=== PATIENT | female | born 1990 | race Caucasian/White ===

== ENCOUNTER 2017-02-09 05:05 | Emergency (ER) | payer BC, OTHER ==
[2017-02-09] MEDS ORDERED: NS 0.9% 1000 ML* 1,000 ML IV ONE ×2 (05:14→05:52)
[2017-02-09] MEDS ORDERED: Ondansetron INJ* 2 MG/ML VIAL IV ONE (05:52)
[2017-02-09] MEDS ORDERED: Morphine INJ* 4 MG/ML 1 ML CARPUJECT IV ONE (05:52)
--- NOTE | 2017-02-09 05:55 | ED ---
Alfredito Bey Angela, scribed for Rachel Miles MD on 02/09/17 at 0549 . Abdominal Pain/Female - HPI Summary HPI Summary: This pt is a 26 y/o female accompanied by her boyfriend presenting to [facility] c/o RLQ abd pain since yesterday morning. Pt reports that initially her pain was rated 3 out of 10 in severity. She states that her pain now is rated 6 out of 10 that began at 0330 today. pt denies dysuria, back pain, nausea, diarrhea, vomiting. Her pain is aggravated by deep breathing and alleviated by laying down. PMHx: ovarian cyst - History of Current Complaint Chief Complaint: EDAbdPain Stated Complaint: LOWER RT SIDE ABD PAIN Time Seen by Provider: 02/09/17 05:42 Hx Obtained From: Patient Hx Last Menstrual Period: hx pcos -very irreg Onset/Duration: Lasting Days - 1 Timing: Days - 1 Pain Intensity: 6 Pain Scale Used: 0-10 Numeric Location: Discrete At: RLQ Radiates: No Aggravating Factor(s): Deep Breaths Alleviating Factor(s): Position - laying down Associated Signs and Symptoms: Negative: Fever, Back Pain, Nausea, Vomiting, Diarrhea Allergies/Adverse Reactions: Allergies Allergy/AdvReac Type Severity Reaction Status Date / Time Amoxicillin Allergy Intermediate Rash Verified 08/18/14 13:21 PMH/Surg Hx/FS Hx/Imm Hx Endocrine/Hematology History: Denies: Hx Diabetes, Hx Thyroid Disease Cardiovascular History: Reports: Hx Hypertension Respiratory History: Denies: Hx Asthma, Hx Chronic Obstructive Pulmonary Disease (COPD) GI History: Denies: Hx Ulcer Infectious Disease History: No Infectious Disease History: Denies: Hx Clostridium Difficile, Hx Hepatitis, Hx Human Immunodeficiency Virus (HIV), Hx of Known/Suspected MRSA, Hx Shingles, Hx Tuberculosis, Traveled Outside the [place] in Last 30 Days - Family History Known Family History: Positive: Diabetes - grandfather - Social History Lives: Dormitory/Roommates - boyfriend Alcohol Use: Occasionally Substance Use Type: Reports: Marijuana Hx Tobacco Use: No Smoking Status (MU): Never Smoked Tobacco Review of Systems Negative: Fever, Chills Eyes: Negative ENT: Negative Positive: Abdominal Pain. Negative: Vomiting, Diarrhea, Nausea Negative: burning, dysuria, discharge Skin: Negative All Other Systems Reviewed And Are Negative: Yes Physical Exam Triage Information Reviewed: Yes Vital Signs On Initial Exam: Initial Vitals Temp Pulse Resp BP Pulse Ox 98.3 F 100 16 133/86 100 02/09/17 05:18 02/09/17 05:18 02/09/17 05:18 02/09/17 05:18 02/09/17 05:18 Vital Signs Reviewed: Yes Appearance: Positive: Well-Appearing, No Pain Distress Skin: Positive: Warm, Skin Color Reflects Adequate Perfusion, Dry Eyes: Positive: EOMI, HAIM ENT: Positive: Pharynx normal, TMs normal Neck: Positive: Supple, Nontender Respiratory/Lung Sounds: Positive: Clear to Auscultation, Breath Sounds Present. Negative: Rales, Rhonchi, Wheezes Cardiovascular: Positive: RRR. Negative: Murmur, Rub, Other - gallop Abdomen Description: Positive: Soft, Other: - RLQ tenderness Bowel Sounds: Positive: Present Musculoskeletal: Positive: Strength/ROM Intact. Negative: Edema Left, Edema Right Neurological: Positive: Sensory/Motor Intact, Alert, Oriented to Person Place, Time, CN Intact II-III Psychiatric: Positive: Affect/Mood Appropriate Diagnostics - Vital Signs Vital Signs Temp Pulse Resp BP Pulse Ox 02/09/17 05:18 98.3 F 100 16 133/86 100 - Laboratory Lab Statement: Any lab studies that have been ordered have been reviewed, and results considered in the medical decision making process. Abdominal Pain Fem Course/Dx - Course Course Of Treatment: 26 yo female with rlq pain that has worsened over the last 24 hours. Pt initially seen by me labs,pain meds and ct scan abd/pelvis have been ordered and pt will be signed out to am attending - Diagnoses Provider Diagnoses: Abdominal pain Discharge - Discharge Plan Condition: Stable Disposition: OTHER Discharge Disposition Comment: to signed out to the am attending The documentation as recorded by the Alfredito nicholas Angela accurately reflects the service I personally performed and the decisions made by me, Rachel Miles MD.
[2017-02-09 06:54] LABS: Hematocrit 42 % (35-47); Hemoglobin 14.4 g/dl (12.0-16.0); Mean Corpuscular HGB Conc 34 g/dl (31-36); Mean Corpuscular Hemoglobin 31 pg (27-31); Mean Corpuscular Volume 90 fL (80-97); Mean Platelet Volume 8 um3 (7.4-10.4); Red Blood Count 4.69 10^6/ul (4.0-5.4); Red Cell Distribution Width 12 % (10.5-15); White Blood Count 7.9 10^3/ul (3.5-10.8)
[2017-02-09 07:16] LABS: ALT 10 U/L (7-52); AST 13 U/L (13-39); Albumin 4.3 g/dL (3.2-5.2); Alkaline Phosphatase 28 U/L (34-104); Anion Gap 9 mmol/L (2-11); BUN/Creatinine Ratio 13.3 (8-20); Blood Urea Nitrogen 11 mg/dL (6-24); C Reactive Protein 7.77 mg/L (< 5.00); CO2 Carbon Dioxide 25 mmol/L (22-32); Calcium 9.2 mg/dL (8.6-10.3); Chloride 100 mmol/L (101-111); EGFR African American 106.9 (>60); EGFR Non-African American 83.1 (>60); Glucose 95 mg/dL (70-100); Lipase 71 U/L (11.0-82.0); Potassium 4.1 mmol/L (3.5-5.0); Sodium 134 mmol/L (133-145); Total Protein 7.3 g/dL (6.4-8.9)
--- NOTE | 2017-02-09 08:00 | RAD ---
CLINICAL HISTORY: Right lower quadrant pain COMPARISON: None TECHNIQUE: Noncontrast CT examination of the abdomen and pelvis from the lung bases through the initial tuberosities. FINDINGS: VISUALIZED LUNG BASES: The visualized lung bases are grossly clear. There is no pleural effusion. ABDOMEN AND PELVIS: Evaluation of the solid organs and vasculature is limited without intravenous contrast. The liver is top normal and maximum cephalocaudal dimension measuring 19.8 cm. Liver is otherwise homogenous in attenuation with a slightly higher overall attenuation in the spleen. The spleen, pancreas and adrenal glands are grossly normal in appearance. The gallbladder is normal. The kidneys are normal in appearance without focal mass, calcification or signs of hydronephrosis. Evaluation of the gastrointestinal tract is limited without oral contrast. The small and large bowel are not distended.The patient's normal appendix is identified in the right lower quadrant with a small amount of gas in the lumen measuring 5 mm in diameter (axial image 60). There is no gross retroperitoneal or mesenteric lymphadenopathy. The pelvic viscera is normal in appearance. The abdominal aorta and iliac arteries are normal in course and diameter. There are no sinister bone lesions. IMPRESSION: No acute localizing pathology that would account for the patient's current presentation.
--- NOTE | 2017-02-09 08:31 | RAD ---
INDICATION: Right lower quadrant pain COMPARISON: CT February 09, 2017 TECHNIQUE: Longitudinal and transverse endovaginal scans of the pelvis were obtained. FINDINGS: Uterus: The uterus is normal in size. There are no focal masses. The uterus measures 5.6 x 3.2 x 3.9 cm. Endometrial thickness: The endometrial thickness is measured at 0.3 cm. . Free fluid: There is no significant free fluid . Ovaries: The ovaries are normal in size. The right ovary measures 2.7 x 2.1 x 2.4 cm. The left ovary measures 2.9 x 2.1 x 2.0 cm. . Doppler interrogation demonstrates flow to each ovary. Other: None IMPRESSION: NEGATIVE EXAMINATION.
[2017-02-09 08:54] VITALS: BP 120/69
--- NOTE | 2017-02-09 09:15 | ED ---
Tonia Bey Alfonso, scribed for Iban Arroyo MD on 02/09/17 at 0745 . Progress - Progress Note Progress Note: This patient was signed out from Dr. Miles, pending disposition, awaiting blood work. Reevaluation at 0729: Labs and imaging results reviewed with the patient. She reports the pain started yesterday morning. PMHx of ovarian cysts reviewed. Physical Exam Findings VITAL SIGNS: Reviewed. GENERAL: Patient is a well-developed and nourished female who is lying comfortable in the stretcher. Patient is not in any acute respiratory distress. HEAD AND FACE: Normocephalic and atraumatic. EYES: PERRLA, EOMI x 2, No injected conjunctiva. EARS: Hearing grossly intact. Ear canals and tympanic membranes are WNL. MOUTH: Oropharynx within normal limits. NECK: Supple, trachea is midline, no adenopathy, no JVD. CHEST: Symmetric, no tenderness at palpation LUNGS: Clear to auscultation bilaterally. No wheezing or crackles. CVS: RRR, S1 and S2 present, no murmurs or gallops appreciated. ABDOMEN: Left pelvic area tenderness. Soft. No signs of distention. Positive bowel sounds. No rebound no guarding, and no masses palpated. No abdominal bruit or pulsations. EXTREMITIES: FROM in all major joints, no edema, no cyanosis or clubbing. NEURO: Alert and oriented x 3. No acute neurological deficits. Speech is normal. SKIN: Dry and warm US transvaginal reveals, per radiologist, NEGATIVE EXAMINATION. ED physician has reviewed this radiology report and agrees. Reevaluation at 0845: She reports feeling much better. US results reviewed. Appendicitis was r/o with the abdominal and pelvic CT. Ovarian cyst or torsion was r/o with pelvic U/S. I offered patient a pelvic exam and declined. She was instructed to return to the ED if she were to develop more pain, nausea, vomiting, fever, chills, or any other symptoms. The patients condition is stable and will be discharged to home with PCP follow up and a Dx of abdominal pain. - Results/Orders Results/Orders: US transvaginal reveals, per radiologist, NEGATIVE EXAMINATION. ED physician has reviewed this radiology report and agrees. Course/Dx - Diagnoses Provider Diagnoses: Abdominal pain The documentation as recorded by the Tonia nicholas Alfonso accurately reflects the service I personally performed and the decisions made by me, Iban Arroyo MD.
== END 2017-02-09 08:54 ==
LOC: ED 05:05
DX: R10.9 Unspecified abdominal pain (principal)
CPT/HCPCS: 36415; 74176; 76830; 80053; 83605; 83690; 84702; 85025; 86140; 96374; 96375; 99283; J2270; J2405

== ENCOUNTER 2017-02-11 16:47 | Emergency (ER) | payer BC ==
[2017-02-11 21:14] LABS: Hematocrit 38 % (35-47); Mean Corpuscular HGB Conc 34 g/dl (31-36); Mean Corpuscular Hemoglobin 31 pg (27-31); Mean Corpuscular Volume 91 fL (80-97); Mean Platelet Volume 8 um3 (7.4-10.4); Red Blood Count 4.21 10^6/ul (4.0-5.4); Red Cell Distribution Width 12 % (10.5-15); White Blood Count 7.6 10^3/ul (3.5-10.8)
[2017-02-11 21:28] LABS: BUN/Creatinine Ratio 11.7 (8-20); C Reactive Protein 7.21 mg/L (< 5.00); Calcium 8.9 mg/dL (8.6-10.3); EGFR African American 116.5 (>60); EGFR Non-African American 90.6 (>60); Globulin 2.8 g/dL (2-4); Potassium 3.9 mmol/L (3.5-5.0); Total Bilirubin 0.3 mg/dL (0.2-1.0); Total Protein 6.8 g/dL (6.4-8.9)
[2017-02-11] MEDS ORDERED: HYDROcodone/ACETAMIN 5-325 MG* 1 TAB PO ONE (21:42)
[2017-02-11 21:45] VITALS: BP 122/81
--- NOTE | 2017-02-11 21:49 | ED ---
Tonia Bey Alfonso, scribed for Rachel Miles MD on 02/11/17 at 1942 . Abdominal Pain/Female - HPI Summary HPI Summary: This patient is a 26 year old F presenting to [facility] accompanied by mother and boyfriend with a chief complaint of RLQ abdominal pain since 4 days ago. She presented to [facility] for this complaint two days ago with a diagnosis of abdominal pain. She saw Dr. Rupa Zhang (PCP) this morning who thought it was PID for which she was prescribed Zithromax (5 days) and Flagyl (7 days BID). The patient rates the pain 7/10 in severity. Symptoms aggravated by nothing. Symptoms alleviated by nothing. Patient reports diarrhea (watery since last night), and blood in the stool (one episode of bright red blood at 1530 today). Patient denies vaginal discharge, and LLQ abdominal pain. She denies drinking raw milk. LMP almost 3 weeks ago. PMHx includes HTN, irritable bowel, ovarian cyst, and hiatal hernia unrepaired. - History of Current Complaint Chief Complaint: EDAbdPain Stated Complaint: BLOOD IN STOOL/ABD PAIN Time Seen by Provider: 02/11/17 19:35 Hx Obtained From: Patient Hx Last Menstrual Period: almost 3 weeks ago. Onset/Duration: Sudden Onset, Lasting Days - 4, Still Present Timing: Constant Severity Currently: Moderate Pain Intensity: 7 Pain Scale Used: 0-10 Numeric Location: Discrete At: RLQ Aggravating Factor(s): Nothing Alleviating Factor(s): Nothing Associated Signs and Symptoms: Positive: Other: - Patient reports diarrhea ( watery), and blood in the stool (one episode of bright red blood at 1530 today) . Patient denies vaginal discharge, and LLQ abdominal pain. Allergies/Adverse Reactions: Allergies Allergy/AdvReac Type Severity Reaction Status Date / Time Amoxicillin Allergy Intermediate Rash Verified 08/18/14 13:21 Home Medications: Home Medications Desogestrel & Ethinyl Estradio [Juleber 0.15-30 mg-Mcg] 1 tab PO DAILY 02/11/17 [History Confirmed 02/11/17] Metoprolol Succinate XL TAB* [Toprol XL TAB*] 25 mg PO DAILY 02/11/17 [History Confirmed 02/11/17] PMH/Surg Hx/FS Hx/Imm Hx Endocrine/Hematology History: Denies: Hx Diabetes, Hx Thyroid Disease Cardiovascular History: Reports: Hx Hypertension Respiratory History: Denies: Hx Asthma, Hx Chronic Obstructive Pulmonary Disease (COPD) GI History: Reports: Hx Irritable Bowel, Other GI Disorders - hiatal hernia unrepaired. Denies: Hx Ulcer History: Reports: Other Problems/Disorders - ovarian cyst Infectious Disease History: No Infectious Disease History: Denies: Hx Clostridium Difficile, Hx Hepatitis, Hx Human Immunodeficiency Virus (HIV), Hx of Known/Suspected MRSA, Hx Shingles, Hx Tuberculosis, Traveled Outside the [place] in Last 30 Days - Family History Known Family History: Positive: Diabetes - grandfather - Social History Alcohol Use: Occasionally Substance Use Type: Reports: Marijuana Hx Tobacco Use: No Smoking Status (MU): Never Smoked Tobacco Review of Systems Negative: Fever Positive: Abdominal Pain - RLQ; negative LLQ, Diarrhea, Other - blood in the stool (one episode of bright red blood at 1530 today). Positive: other - Negative vaginal discharge All Other Systems Reviewed And Are Negative: Yes Physical Exam - Summary Physical Exam Summary: General: Well appearing, no pain distress Skin: Warm, Skin Color Reflects Adequate Perfusion, Dry Eyes: EOMI, HAIM ENT: Pharynx normal, TMs normal Neck: Supple, nontender Respiratory: CTA, breath sounds present, no rhonchi, no wheezes, no rales Cardiovascular: RRR, no murmur, no rub, no gallop Abdomen: Mild RLQ discomfort, Soft, Non-distended, no guarding, no rebound Bowel: Present Musculoskeletal: JED, No edema Neuro: Sensory/motor intact, A&Ox3, CN intact 2-12 Psych: Affect/mood appropriate Triage Information Reviewed: Yes Vital Signs On Initial Exam: Initial Vitals Temp Pulse Resp BP Pulse Ox 97.6 F 101 18 132/91 98 02/11/17 16:57 02/11/17 16:57 02/11/17 16:57 02/11/17 16:57 02/11/17 16:57 Vital Signs Reviewed: Yes - [place] Coma Scale Coma Scale Total: 15 Diagnostics - Vital Signs Vital Signs Temp Pulse Resp BP Pulse Ox 02/11/17 19:02 94 98 02/11/17 19:01 134/92 02/11/17 16:57 97.6 F 101 18 132/91 98 - Laboratory Lab Results: Lab Results 02/11/17 02/11/17 Range/Units 21:07 21:07 WBC 7.6 (3.5-10.8) 10^3/ul RBC 4.21 (4.0-5.4) 10^6/ul Hgb 13.0 (12.0-16.0) g/dl Hct 38 (35-47) % MCV 91 (80-97) fL MCH 31 (27-31) pg MCHC 34 (31-36) g/dl RDW 12 (10.5-15) % Plt Count 267 (150-450) 10^3/ul MPV 8 (7.4-10.4) um3 Neut % (Auto) 46.9 (38-83) % Lymph % (Auto) 42.5 (25-47) % [place] % (Auto) 8.1 (1-9) % Eos % (Auto) 1.9 (0-6) % Baso % (Auto) 0.6 (0-2) % Absolute Neuts (auto) 3.6 (1.5-7.7) 10^3/ul Absolute Lymphs (auto) 3.2 (1.0-4.8) 10^3/ul Absolute Monos (auto) 0.6 (0-0.8) 10^3/ul Absolute Eos (auto) 0.1 (0-0.6) 10^3/ul Absolute Basos (auto) 0 (0-0.2) 10^3/ul Absolute Nucleated RBC 0 10^3/ul Nucleated RBC % 0 Sodium 134 (133-145) mmol/L Potassium 3.9 (3.5-5.0) mmol/L Chloride 102 (101-111) mmol/L Carbon Dioxide 24 (22-32) mmol/L Anion Gap 8 (2-11) mmol/L BUN 9 (6-24) mg/dL Creatinine 0.77 (0.51-0.95) mg/dL Est GFR ( Amer) 116.5 (>60) Est GFR (Non-Af Amer) 90.6 (>60) BUN/Creatinine Ratio 11.7 (8-20) Glucose 84 (70-100) mg/dL Calcium 8.9 (8.6-10.3) mg/dL Total Bilirubin 0.30 (0.2-1.0) mg/dL AST 12 L (13-39) U/L ALT 8 (7-52) U/L Alkaline Phosphatase 22 L (34-104) U/L C-Reactive Protein 7.21 H (< 5.00) mg/L Total Protein 6.8 (6.4-8.9) g/dL Albumin 4.0 (3.2-5.2) g/dL Globulin 2.8 (2-4) g/dL Albumin/Globulin Ratio 1.4 (1-3) Result Diagrams: 02/11/17 21:07 02/11/17 21:07 Lab Statement: Any lab studies that have been ordered have been reviewed, and results considered in the medical decision making process. Abdominal Pain Fem Course/Dx - Course Course Of Treatment: this is a patient who was originally seen by me on early Thursday morning with rlq pain with neg labs, ct and u/s. She followed up with her pmd who on pelvic diagnosed a concern for pid, the pt was started on flagyl and azithro with resultant bloody stool. Pt is here with her mom and significant other and a long discussion was had about what the pt wanted to do / should do. Pt raises concern that she has no vaginal discharge and often has GI issues -which sound like irritable bowel. With the patient and family it was decided to hold the abx for now and wait for the culture as this may be looking more like an inflammatory bowel disorder. Labs were redrawn today with no change including no increase in wbc or crp. - Diagnoses Provider Diagnoses: Abdominal pain Discharge - Discharge Plan Condition: Stable Disposition: HOME Prescriptions: HYDROcodone/ACETAMIN 5-325 MG* [[place] 5-325 TAB*] 1 tab PO Q8H PRN #9 tab MDD 3 PRN Reason: Pain Patient Education Materials: Abdominal Pain (ED) Forms: *Work Release Referrals: Ryan Moreno MD [Medical Doctor] - 3 Days Rupa Zhang MD [Medical Doctor] - 3 Days Negrita Gresham MD [Medical Doctor] - 3 Days Additional Instructions: RETURN TO THE EMERGENCY DEPARTMENT FOR CHANGING OR WORSENING SYMPTOMS. The documentation as recorded by the Tonia nicholas Alfonso accurately reflects the service I personally performed and the decisions made by me, Rachel Miles MD.
== END 2017-02-11 22:18 | disposition home or self-care (01) ==
LOC: ED 16:47
DX: R10.31 Right lower quadrant pain (principal); R19.7 Diarrhea, unspecified; K92.1 Melena; I10 Essential (primary) hypertension; K58.9 Irritable bowel syndrome, unspecified; K44.9 Diaphragmatic hernia without obstruction or gangrene; Z88.1 Allergy status to other antibiotic agents
CPT/HCPCS: 36415; 80053; 85025; 86140; 99282

== ENCOUNTER → 2017-11-11 18:19 | Emergency (ER) | payer BC, MEDICAID ==
[~2017-11-11 18:19] MED LIST: Iohexol 300* (CONTRAST) 10 ML SDV IV ONE; Ketorolac INJ* 30 MG/ML 1 ML VIAL IV PUSH ONE; NS 0.9% 1000 ML* 1,000 ML IV ONE
[2017-11-11 19:51] LABS: ABS Basophils 0.1 10^3/ul (0-0.2); ABS Eosinophils 0.2 10^3/ul (0-0.6); ABS Lymphocytes 3.3 10^3/ul (1.0-4.8); ABS Monocytes 0.6 10^3/ul (0-0.8); ABS Neutrophils 3.7 10^3/ul (1.5-7.7); ABS Nucleated RBC 0 10^3/ul; Hematocrit 42 % (35-47); Hemoglobin 14.4 g/dl (12.0-16.0); Lymphocyte % 42.2 % (25-47); Mean Corpuscular HGB Conc 34 g/dl (31-36); Mean Corpuscular Hemoglobin 30 pg (27-31); Mean Corpuscular Volume 88 fL (80-97); Mean Platelet Volume 8.1 um3 (7.4-10.4); Nucleated Red Blood Cells % 0.1; Platelet Count 302 10^3/ul (150-450); Red Blood Count 4.78 10^6/ul (4.00-5.40); Red Cell Distribution Width 13 % (10.5-15); White Blood Count 7.8 10^3/ul (3.5-10.8)
[2017-11-11 20:01] LABS: EGFR Non-African American 83.6 (>60)
--- NOTE | 2017-11-11 21:29 | ED ---
Abdominal Pain/Female - HPI Summary HPI Summary: Patient is a 27-year-old female who presents emergency department for right lower quadrant abdominal pain 5 days. Has associated symptoms of nausea and diarrhea. Patient states that pain is becoming more severe and constant. Pain is improved with lying flat and worse with movement. Denies fever, upper respiratory symptoms, urinary symptoms, vaginal discharge or bleeding. Patient states she had similar symptoms about one year ago and had negative ultrasound and CAT scan done. Patient states she also had a colonoscopy done by GI was diagnosed with IBS. She was prescribed Bentyl. She states she took Bentyl when her pain started but it did not help pain and made her drowsy. Symptoms are moderate in severity. No significant past medical history. - History of Current Complaint Chief Complaint: EDAbdPain Stated Complaint: LOWER RIGHT ABD PAIN Time Seen by Provider: 11/11/17 20:57 Hx Obtained From: Patient Hx Last Menstrual Period: almost 3 weeks ago. Pain Intensity: 9 Allergies/Adverse Reactions: Allergies Allergy/AdvReac Type Severity Reaction Status Date / Time amoxicillin Allergy Unknown Verified 11/11/17 21:16 Reaction Details Home Medications: Home Medications Sertraline HCl [Zoloft] 75 mg PO DAILY 11/11/17 [History Confirmed 11/11/17] PMH/Surg Hx/FS Hx/Imm Hx Previously Healthy: Yes Endocrine/Hematology History: Denies: Hx Diabetes, Hx Thyroid Disease Cardiovascular History: Reports: Hx Hypertension Respiratory History: Denies: Hx Asthma, Hx Chronic Obstructive Pulmonary Disease (COPD) GI History: Reports: Hx Irritable Bowel, Other GI Disorders - hiatal hernia unrepaired. Denies: Hx Ulcer History: Reports: Other Problems/Disorders - ovarian cyst Infectious Disease History: No Infectious Disease History: Denies: Hx Clostridium Difficile, Hx Hepatitis, Hx Human Immunodeficiency Virus (HIV), Hx of Known/Suspected MRSA, Hx Shingles, Hx Tuberculosis, Traveled Outside the [place] in Last 30 Days - Family History Known Family History: Positive: Diabetes - grandfather - Social History Alcohol Use: Occasionally Substance Use Type: Reports: Marijuana Hx Tobacco Use: No Smoking Status (MU): Never Smoked Tobacco Review of Systems Constitutional: Negative Negative: Fever, Chills Eyes: Negative ENT: Negative Cardiovascular: Negative Respiratory: Negative Positive: Abdominal Pain, Diarrhea, Nausea Genitourinary: Negative Neurological: Negative All Other Systems Reviewed And Are Negative: Yes Physical Exam Triage Information Reviewed: Yes Vital Signs On Initial Exam: Initial Vitals Temp Pulse Resp BP Pulse Ox 98.5 F 115 19 143/97 99 11/11/17 18:55 11/11/17 18:55 11/11/17 18:55 11/11/17 18:55 11/11/17 18:55 Vital Signs Reviewed: Yes Appearance: Positive: Well-Appearing - Pt. lying in bed in NAD. Mother present. Skin: Positive: Warm, Dry Head/Face: Positive: Normal Head/Face Inspection Eyes: Positive: Normal Neck: Positive: Supple Respiratory/Lung Sounds: Positive: Clear to Auscultation, Breath Sounds Present Cardiovascular: Positive: Normal, RRR Abdomen Description: Positive: Other: - Abd. is soft with marked tenderness and gaurding to the RLQ. Bowel Sounds: Positive: Present Neurological: Positive: Normal, CN Intact II-III Psychiatric: Positive: Affect/Mood Appropriate Diagnostics - Vital Signs Vital Signs Temp Pulse Resp BP Pulse Ox 11/11/17 21:09 118 17 147/90 99 11/11/17 18:55 98.5 F 115 19 143/97 99 - Laboratory Lab Results: Lab Results 11/11/17 11/11/17 11/11/17 Range/Units 19:30 19:30 19:30 WBC 7.8 (3.5-10.8) 10^3/ul RBC 4.78 (4.00-5.40) 10^6/ul Hgb 14.4 (12.0-16.0) g/dl Hct 42 (35-47) % MCV 88 (80-97) fL MCH 30 (27-31) pg MCHC 34 (31-36) g/dl RDW 13 (10.5-15) % Plt Count 302 (150-450) 10^3/ul MPV 8.1 (7.4-10.4) um3 Neut % (Auto) 47.5 (38-83) % Lymph % (Auto) 42.2 (25-47) % [place] % (Auto) 7.5 H (0-7) % Eos % (Auto) 2.0 (0-6) % Baso % (Auto) 0.8 (0-2) % Absolute Neuts (auto) 3.7 (1.5-7.7) 10^3/ul Absolute Lymphs (auto) 3.3 (1.0-4.8) 10^3/ul Absolute Monos (auto) 0.6 (0-0.8) 10^3/ul Absolute Eos (auto) 0.2 (0-0.6) 10^3/ul Absolute Basos (auto) 0.1 (0-0.2) 10^3/ul Absolute Nucleated RBC 0 10^3/ul Nucleated RBC % 0.1 Sodium 137 (135-145) mmol/L Potassium 3.9 (3.5-5.0) mmol/L Chloride 101 (101-111) mmol/L Carbon Dioxide 26 (22-32) mmol/L Anion Gap 10 (2-11) mmol/L BUN 7 (6-24) mg/dL Creatinine 0.82 (0.51-0.95) mg/dL Est GFR ( Amer) 101.2 (>60) Est GFR (Non-Af Amer) 83.6 (>60) BUN/Creatinine Ratio 8.5 (8-20) Glucose 98 (70-100) mg/dL Lactic Acid 1.6 (0.5-2.0) mmol/L Calcium 9.5 (8.6-10.3) mg/dL Total Bilirubin 0.40 (0.2-1.0) mg/dL AST 21 (13-39) U/L ALT 21 (7-52) U/L Alkaline Phosphatase 38 (34-104) U/L C-Reactive Protein 8.89 H (<8.01) mg/L Total Protein 7.3 (6.4-8.9) g/dL Albumin 4.4 (3.2-5.2) g/dL Globulin 2.9 (2-4) g/dL Albumin/Globulin Ratio 1.5 (1-3) Lipase 37 (11.0-82.0) U/L Result Diagrams: 11/11/17 19:30 11/11/17 19:30 Lab Statement: Any lab studies that have been ordered have been reviewed, and results considered in the medical decision making process. Abdominal Pain Fem Course/Dx - Course Course Of Treatment: Pt. presenting for increasing RLQ abd. pain as well as nausea and diarrhea. She is afebrile with stable vital signs. Pt. has labs in triage which are unremarkable. Negative . Given marked tenderness and associated symptoms will obtain CT scan to evaluate for appendicitis. Toradol ordered for pain. Urinalysis is negative for infection. CT scan shows a 1 cm right ovarian cyst, otherwise negative for acute findings, reading per imaging slot machine floor person. On re-exam pt. is sleeping comfortably. Her pain has improved. Results were discussed. Pt. has a scheduled apt. with her PCP for tomorrow. Recommend f.u with [facility] as well for further evaluation of ongoing abd. pain. NSAIDS for pain as directed. Will return to ER if sxs change or worsen. - Diagnoses Differential Diagnosis: Positive: Appendicitis, Bowel Obstruction, Constipation , Diverticulitis, Ectopic , , Renal Colic, Urinary Tract Infection Provider Diagnoses: Abdominal pain, Ovarian cyst Discharge - Sign-Out/Discharge Documenting (check all that apply): Discharge/Admit/Transfer - Discharge Plan Condition: Good Disposition: HOME Patient Education Materials: Ovarian Cyst (ED), Abdominal Pain (ED) Referrals: Bibiana Paris NP [Primary Care Provider] - Additional Instructions: Follow up with your PCP tomorrow as scheduled NSAIDS for pain as directed Return to ER if symptoms change or worsen - Billing Disposition and Condition Condition: GOOD Disposition: Home
[2017-11-11 21:36] LABS: Urine Appearance Cloudy; Urine Blood 1+ (Negative); Urine Color Straw; Urine Ketones Negative (Negative); Urine Protein Negative (Negative); Urine Specific Gravity 1.004 (1.010-1.030); Urine Urobilinogen Negative (Negative)
[2017-11-12 00:25] VITALS: BP 127/91
--- NOTE | 2017-11-12 07:48 | RAD ---
INDICATION: Right lower quadrant pain COMPARISON: CT February 09, 2017 TECHNIQUE: Axial source images were obtained from the hemidiaphragms to the symphysis pubis following administration of oral and intravenous contrast. 101 mL Omnipaque 300 was utilized. Coronal and sagittal reconstructed images were acquired. Lung bases: There is mild, bilateral gravity dependent atelectasis with trace pleural effusions. Liver: There is hepatomegaly with hepatic steatosis. There are 3 hyperdense liver masses. Lesions in the left hepatic lobe are measured at 3.7 and 2.4 cm. A right hepatic lobe lesion measures 2.9 cm. These were not documented previously but the prior examination was a noncontrast study which is less sensitive. These lesions are indeterminate. Possible etiologies include, but are not limited to, atypical hemangiomas or FNH. Suggest follow-up MR imaging. There is no ductal dilatation. Gallbladder: There are no calcified gallstones. There is no evidence of wall thickening or pericholecystic fluid. Spleen: The spleen is normal in size. There are no masses. Pancreas: There is no focal pancreatic mass or ductal dilatation. Adrenal glands: There is no evidence of adrenal mass. Kidneys: The kidneys are normal in size and position. There are prompt nephrograms and there is prompt excretion bilaterally. There are no renal parenchymal masses. There is no evidence of nephrolithiasis. Adenopathy: There is no evidence of adenopathy by size criteria. Fluid collections: There are no free or localized fluid collections. Vessels:There are no significant atherosclerotic changes involving the aorta. There is no focal aneurysm. The iliac vessels are normal in caliber. The IVC appears normal. GI tract: There are no acute CT bowel findings. There is no obstruction. The stomach and small bowel appear normal. The lower GI tract is normal. The cecum, ileocecal valve, and terminal ileum appear normal. The appendix is visualized and appear normal. Pelvic organs: The uterus and adnexa appear normal Bladder: There are no bladder masses. Abdominal and pelvic soft tissues: The extraperitoneal abdominal and pelvic soft tissues appear normal.. Osseous structures: There are no acute osseous findings. Other: None IMPRESSION: 1. Indeterminate hepatic lesions. Suggest follow-up imaging (see above). 2. No acute CT findings. No mass or inflammatory changes. Normal appendix.
== END | disposition home or self-care (01) ==
LOC: ED 18:19
DX: N83.209 Unspecified ovarian cyst, unspecified side (principal); R10.31 Right lower quadrant pain; R11.0 Nausea; R19.7 Diarrhea, unspecified
CPT/HCPCS: 36415; 74177; 80053; 81003; 81015; 83605; 83690; 84702; 85025; 86140; 87086; 99283; J1885; Q9967